=== PATIENT | male | born 1975 | race Two or more races ===

== ENCOUNTER 2020-09-18 13:04 | Emergency (ER) | payer OTHER ==
[~2020-09-18] VITALS: Ht 172.7 cm; Wt 86.2 kg
[2020-09-18 16:15] VITALS: BP 127/84
== END 2020-09-18 16:32 | disposition home or self-care (01) ==
LOC: ER 13:04
DX: M79.5 Residual foreign body in soft tissue (principal); W45.8XXA Other foreign body or object entering through skin, initial encounter; Y93.89 Activity, other specified; Y92.89 Other specified places as the place of occurrence of the external cause; Y99.8 Other external cause status